=== PATIENT | female | born 1995 | race Hispanic/Latino ===

== ENCOUNTER 2018-11-10 20:59 | Emergency (ER) | payer OTHER ==
[2018-11-10 21:24] VITALS: RESP 16
[2018-11-10] MEDS ORDERED: Lactated Ringer's 1,000 ML IV STA (21:38)
[2018-11-10] MEDS ORDERED: Morphine 4 MG/ML VIAL IVP STA ×2 (21:38→23:01)
--- NOTE | 2018-11-10 21:54 | ED PDOC ---
HPI: Abdomen Time Seen by Provider: 11/10/18 21:29 Chief Complaint (Nursing): Abdominal Pain Chief Complaint (Provider): Abdominal Pain History Per: Patient History/Exam Limitations: no limitations Onset/Duration Of Symptoms: Hrs (2x hours) Current Symptoms Are (Timing): Still Present Severity: Moderate Location Of Pain/Discomfort: Suprapubic Associated Symptoms: Nausea Additional Complaint(s): 23 year old female with a past medical history of endometriosis presents to the ED for an evaluation of severe lower pelvic pain that started 2x hours prior to arrival. Patient reports having similar previous episodes of endometriosis, but now they are more frequent and intense, and she has started to see a specialist () fo further evaluation. Patient contacted when the pain started, and advised patient to go to the ED for further evalaution. Patient reports taking 1 gm of tylenol with no relief. Patient reports having nausea, but denies having vomiting, diarrhea, vaginal discharge, vaginal bleeding, or urinary symptoms. Patient also reports eating 2x hours prior to arrival without difficulty. PMD: Marty Morrison MD Past Medical History Reviewed: Historical Data, Nursing Documentation, Vital Signs Vital Signs: Last Vital Signs Temp 97.3 F L 11/10/18 21:18 Pulse 102 H 11/10/18 21:18 Resp 16 11/10/18 21:18 BP 130/85 11/10/18 21:18 Pulse Ox 99 11/10/18 21:18 JON Report Viewed: Yes - Medical History Other PMH: endometriosis - Surgical History Surgical History: Tonsillectomy - Family History Family History: States: No Known Family Hx - Social History Current smoker - smoking cessation education provided: No Alcohol: None Drugs: Denies - Immunization History Hx Tetanus Toxoid Vaccination: No Hx Influenza Vaccination: No Hx Pneumococcal Vaccination: No - Home Medications Home Medications: Ambulatory Orders Medication Instructions Recorded oxyCODONE/Acetaminophen [Percocet 1 tab PO Q6H PRN #6 tab 11/11/18 5/325 mg Tab] - Allergies Allergies/Adverse Reactions: Allergies Allergy/AdvReac Type Severity Reaction Status Date / Time No Known Allergies Allergy Verified 11/10/18 21:24 Review of Systems ROS Statement: Except As Marked, All Systems Reviewed And Found Negative Gastrointestinal: Positive for: Nausea, Abdominal Pain (lower pelvic pain). Negative for: Vomiting, Diarrhea Genitourinary Female: Negative for: Vaginal Discharge, Vaginal Bleeding Physical Exam - Reviewed Nursing Documentation Reviewed: Yes Vital Signs Reviewed: Yes - Physical Exam Appears: Positive for: Non-toxic, In Acute Distress (moderate painful distress) Head Exam: Positive for: ATRAUMATIC, NORMOCEPHALIC Skin: Positive for: Warm, Dry Respiratory: Negative for: Accessory Muscle Use, Respiratory Distress Gastrointestinal/Abdominal: Positive for: Soft, Tenderness (suprapubic tenderness to palpation.). Negative for: Mass, Distended, Guarding, Rebound Back: Positive for: Normal Inspection. Negative for: Muscle Spasm Lymphatic: Negative for: Adenopathy Neurologic/Psych: Positive for: Alert, Oriented (3x) - Laboratory Results Result Diagrams: 11/10/18 22:00 11/10/18 22:00 - ECG O2 Sat by Pulse Oximetry: 99 (RA) Pulse Ox Interpretation: Normal Medical Decision Making Medical Decision Makin:29 Initial impression: 23 year old female with endometrial pain. Patient refusing to provide urine sample. Patient is aware that if she is , the medications may be harmful to potential . Initial plan: * US transvaginal * CMP * HCG qualitative serum * CBC w/ diff * lactated ringers 1,000 ml IV 1,000 mls/hr * morphine 4 mg IVP * zofran inj 4 mg IVP * reevaluation 00:00 Patient care endorsed to Dr. Wilson pending US and discharge. Scribe Attestation: Documented by Roberta Arnett, acting as a scribe for Rupal Perales MD. Provider Scribe Attestation: All medical record entries made by the Scribe were at my direction and personally dictated by me. I have reviewed the chart and agree that the record accurately reflects my personal performance of the history, physical exam, medical decision making, and the department course for this patient. I have also personally directed, reviewed, and agree with the discharge instructions and disposition Disposition - Clinical Impression Clinical Impression: Endometriosis - Patient ED Disposition Is Patient to be Admitted: Transfer of Care - Disposition Disposition: Transfer of Care Disposition Time: 00:00 Condition: STABLE Prescriptions: oxyCODONE/Acetaminophen [Percocet 5/325 mg Tab] 1 tab PO Q6H PRN #6 tab PRN Reason: Pain, Moderate (4-7) Forms: [employer] (Swedish) Patient Signed Over To: Hue Wilson
[2018-11-10] MEDS ORDERED: Morphine 4 MG/ML VIAL ONE ×2 (22:03→23:21)
[2018-11-10 22:09] LABS: BASO # 0.1 K/uL (0.0-0.2); BASO % 0.7 % (0.0-2.0); EOS # 0.1 K/uL (0.0-0.7); EOS % 0.8 % (0.0-4.0); HEMOGLOBIN 13.4 g/dL (12.0-16.0); LYMPH # 1.2 K/uL (1.0-4.3); LYMPH % 8.9 % (20.0-40.0); MEAN CELL VOLUME 84.9 fl (81.0-99.0); MEAN CORPUSCULAR HEMOGLOBIN 28.6 pg (27.0-31.0); MEAN CORPUSCULAR HGB CONC 33.7 g/dL (33.0-37.0); MEAN PLATELET VOLUME 9.9 fl (7.2-11.7); MONO # 0.8 K/uL (0.0-0.8); MONO % 6.4 % (0.0-10.0); NEUT # 10.8 K/uL (1.8-7.0); NEUT % 83.2 % (50.0-75.0); PLATELET COUNT 305 K/uL (130-400); RBC 4.69 Mil/uL (3.80-5.20); RED CELL DISTRIBUTION WIDTH 13.2 % (11.5-14.5)
[2018-11-10 22:19] LABS: ALB/GLOB RATIO 1.2 (1.0-2.1); ALBUMIN 4.4 g/dL (3.5-5.0); ALT/SGPT 16 U/L (9-52); AST/SGOT 24 U/L (14-36); BLOOD UREA NITROGEN 14 mg/dl (7-17); CALCIUM 9.2 mg/dL (8.4-10.2); GFR NON-AFRICAN AMERICAN > 60
--- NOTE | 2018-11-11 00:06 | ED PDOC ---
- Laboratory Results Result Diagrams: 11/10/18 22:00 11/10/18 22:00 Lab Results: Total Bilirubin 0.3 mg/dl (0.2-1.3) 11/10/18 22:00 AST 24 U/L (14-36) 11/10/18 22:00 ALT 16 U/L (9-52) 11/10/18 22:00 Alkaline Phosphatase 78 U/L (38-126) 11/10/18 22:00 Total Protein 8.1 G/DL (6.3-8.2) 11/10/18 22:00 Albumin 4.4 g/dL (3.5-5.0) 11/10/18 22:00 Globulin 3.7 gm/dL (2.2-3.9) 11/10/18 22:00 Albumin/Globulin Ratio 1.2 (1.0-2.1) 11/10/18 22:00 - ECG O2 Sat by Pulse Oximetry: 99 (RA) Pulse Ox Interpretation: Normal Medical Decision Making Medical Decision Making: Time: 00:00 Patient care endorsed from Dr. Perales to provider pending US and discharge with pain medications. 00:35 Patient had US done. She is unwilling to stay for the results. she states she feels improved. Patient wants pain medications prescribed. She will follow up with Dr. Morrison. pt requesting prescription for percocet. given to pt after review of [facility]. after dc US resulted and was negative study. Scribe Attestation: Documented by Hussein Ulloa acting as a scribe for Hue Wilson MD. Provider Scribe Attestation: All medical record entries made by the Scribe were at my direction and personally dictated by me. I have reviewed the chart and agree that the record accurately reflects my personal performance of the history, physical exam, medical decision making, and the department course for this patient. I have also personally directed, reviewed, and agree with the discharge instructions and disposition. Disposition - Clinical Impression Clinical Impression: Endometriosis - POA Present On Arrival: None - Disposition Disposition: Routine/Home Disposition Time: 00:35 Condition: IMPROVED Additional Instructions: follow up with Dr Morrison as instructed return to the ED with any worsening or concerning symptoms Prescriptions: oxyCODONE/Acetaminophen [Percocet 5/325 mg Tab] 1 tab PO Q6H PRN #6 tab PRN Reason: Pain, Moderate (4-7) Instructions: Endometriosis (DC) Forms: [employer] (Amharic)
[2018-11-11 00:43] LABS: EOSINOPHIL 1 % (0-7); LYMPHOCYTE 9 % (20-50); MONOCYTE 3 % (0-10); NEUTROPHIL 87 % (42-75); PLATELET ESTIMATE NORMAL (NORMAL); TOTAL CELLS COUNTED 100
[2018-11-11 00:44] LABS: ANISOCYTOSIS SLIGHT
[2018-11-11 00:52] VITALS: BP 114/64; PULSE 82; TEMP 98.6
--- NOTE | 2018-11-11 09:22 | US ---
Date of service: 11/10/2018 HISTORY: severe pelvic pain h/o endometriosis COMPARISON: None available. TECHNIQUE: Transabdominal and transvaginal pelvic ultrasound was performed. FINDINGS: UTERUS: Measures 8.9 x 3.4 x 5.6 cm. Anteverted, normal in size and appearance. No fibroid or other mass lesion seen. ENDOMETRIUM: Measures 4.2 mm in diameter. Normal in appearance. CERVIX: No cervical abnormality identified. RIGHT OVARY: Measures 3.4 x 2.1 x 2.0 cm. No solid mass. Normal flow. LEFT OVARY: Measures 2.5 x 1.7 x 1.8 cm. No solid mass. Normal flow. FREE FLUID: No significant free fluid noted. OTHER FINDINGS: None. IMPRESSION: Unremarkable pelvic ultrasound. A preliminary report was provided by [employer].
[2018-11-12 05:47] VITALS: O2SAT 99
== END 2018-11-11 00:51 | disposition home or self-care (01) ==
LOC: H.ER 20:59
DX: N80.9 Endometriosis, unspecified (principal)
CPT/HCPCS: 76830; 80053; 84703; 85025; 96361; 96374; 96375; 96376; 99284; J2270; J2405; J7120